=== PATIENT | male | born 1980 | race Two or more races ===

== ENCOUNTER 2021-08-11 09:26 | Emergency (ER) | payer OTHER ==
[~2021-08-11] VITALS: Ht 170.2 cm; Wt 88.9 kg
[2021-08-11 10:13] VITALS: BP 123/78
== END 2021-08-11 11:43 | disposition home or self-care (01) ==
LOC: ER 09:26
DX: S63.601A Unspecified sprain of right thumb, initial encounter (principal); X50.1XXA Overexertion from prolonged static or awkward postures, initial encounter; Y93.89 Activity, other specified; Y92.89 Other specified places as the place of occurrence of the external cause; Y99.8 Other external cause status
CPT/HCPCS: 29125; 73130